=== PATIENT | female | born 2000 | race Hispanic/Latino ===

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

== ENCOUNTER 2021-05-10 15:59 | Outpatient (CLI) | payer OTHER ==
[2021-05-10] MEDS ORDERED: LACTATED RINGERS 500 ML IV ONE (16:30)
[2021-05-10 17:08] VITALS: BP 121/71
--- NOTE | 2021-05-10 18:15 | Ultrasound Report ---
ULTRASOUND BIOPHYSICAL PROFILE INDICATION: decreased movement. COMPARISON: None available. FINDINGS: BREATHING MOVEMENT = 2 GROSS BODY MOVEMENT = 2 TONE = 2 QUALITATIVE AMNIOTIC FLUID VOLUME = 2 TOTAL BIOPHYSICAL SCORE = 04/01 AMNIOTIC FLUID INDEX (cm) = 7.8 PRESENTATION: Cephalic. HEART RATE (beats per minute): 136 IMPRESSION: 1. biophysical profile = 04/01 Signer Name: Roberth Solano MD Signed: 05/10/2021 6:10 PM Workstation Name: [email or web address]
== END 2021-05-10 18:34 | disposition home or self-care (01) ==
LOC: TRG 15:59 → APU 16:00 → TRG 18:34
PROVIDERS: ATTEND Obstetrics & Gynecology
DX: O36.8130 Decreased fetal movements, third trimester, not applicable or unspecified (principal); Z3A.28 28 weeks gestation of pregnancy
CPT/HCPCS: 59025; 76815; 76819

== ENCOUNTER 2021-06-26 06:31 | Outpatient (CLI) | payer OTHER ==
[2021-06-26] MEDS ORDERED: LACTATED RINGERS 500 ML IV ONE (08:00)
[2021-06-26 08:12] VITALS: BP 122/74
== END 2021-06-26 08:09 | disposition home or self-care (01) ==
LOC: TRG 06:31 → APU 06:32 → TRG 08:09
PROVIDERS: ATTEND Student in an Organized Health Care Education/Training Program
DX: Z34.93 Encounter for supervision of normal pregnancy, unspecified, third trimester (principal); Z3A.36 36 weeks gestation of pregnancy
CPT/HCPCS: 59025; Q0177

== ENCOUNTER 2021-07-10 12:58 | Outpatient (CLI) | payer OTHER ==
[2021-07-10] MEDS ORDERED: LACTATED RINGERS 1,000 ML IV ONE (14:00)
[2021-07-10 14:51] LABS: Bilirubin,Urine NEG (Negative); Blood,Urine NEG (Negative); Color,Urine Yellow (Yellow); Hyaline Casts,Urine 12 /LPF; Mucus,Urine FEW /HPF; Urobilinogen,Urine < 2.0 mg/dL (<2.0)
[2021-07-10 14:52] LABS: Basophils % (Auto) 0.3 % (0.0-1.8); Eosinophils # (Auto) 0.1 K/mm3 (0.0-0.4); Eosinophils % (Auto) 1.1 % (0.0-4.3); Hematocrit 35.5 % (30.3-42.9); Hemoglobin 11.3 gm/dl (10.1-14.3); Lymphocytes # (Auto) 1.2 K/mm3 (1.2-5.4); Lymphocytes % (Auto) 10.1 % (13.4-35.0); Mean Corpuscular HGB Conc 32 % (30-34); Mean Corpuscular Volume 82 fl (79-97); Monocytes # (Auto) 1.2 K/mm3 (0.0-0.8); Monocytes % (Auto) 9.8 % (0.0-7.3); Platelet Count 182 K/mm3 (140-440); Red Blood Count 4.32 M/mm3 (3.65-5.03); Red Cell Distribution Width 14.1 % (13.2-15.2)
--- NOTE | 2021-07-10 15:45 | XRay Report ---
CHEST 1 VIEW 07/10/2021 3:14 PM INDICATION / CLINICAL INFORMATION: SOB. COMPARISON: None available. FINDINGS: SUPPORT DEVICES: None. HEART / MEDIASTINUM: No significant abnormality. LUNGS / PLEURA: No significant pulmonary abnormality. No significant pleural effusion. No pneumothora x. ADDITIONAL FINDINGS: No significant additional findings. IMPRESSION: 1. No acute abnormality of the chest. Signer Name: Chauncey East MD Signed: 07/10/2021 3:41 PM Workstation Name: [id number]
[2021-07-10] MEDS ORDERED: ALBUTEROL 2.5 MG/3 ML NEBU IH ONE (16:53)
--- NOTE | 2021-07-10 18:29 | Event Note ---
Date: 07/10/21 Patient presents complaining of SOB and contractions, O2 sat's normal, she gives an history of asthma which this feels like but has not used her albuterol neb and has not had an asthma attack in 5-6years. CXR normal, respiratory consulted for assessment and treatment. Complained of chest pain EKG revealed only sinus tachycardia. Will reassess to determine if she will be allowed home
[2021-07-10 19:02] LABS: Alanine Aminotransferase 7 units/L (7-56); Uric Acid 4.2 mg/dL (3.5-7.6)
--- NOTE | 2021-07-10 19:16 | Event Note ---
Date: 07/10/21 Pt reports feeling better and desires to go home. Pt states she was cleaning today and States she inhaled dust and cleaning supplies that aggravated her asthma. Pre-e labs reviewed. Plan for d/c home with reactive tracing.
[2021-07-10 20:16] VITALS: BP 125/64
--- NOTE | 2021-07-12 10:37 | Electrocardiograph Report ---
[facility] Test Date: 2021-07-10 Test Time: 17:31:11 Pat Name: JOSR MANCINI Department: Room: Gender: F Customer Services Coordinator: DARWIN : 2000 Requested By: MANFRED HERNANDEZ Order Number: [id number] Reading MD: Jacob Ansari Measurements Intervals [place] Rate: 123 P: 35 MI: 122 QRS: 7 QRSD: 83 T: 29 QT: 316 QTc: 452 Interpretive Statements Sinus tachycardia No previous ECG available for comparison Electronically Signed On 07-12-2021 10:36:41 EST by Jacob Ansari
== END 2021-07-10 20:30 | disposition home or self-care (01) ==
LOC: TRG 12:58 → APU 12:59 → TRG 20:30
PROVIDERS: ATTEND Obstetrics & Gynecology
DX: O62.9 Abnormality of forces of labor, unspecified (principal); R06.02 Shortness of breath; O99.513 Diseases of the respiratory system complicating pregnancy, third trimester; J45.909 Unspecified asthma, uncomplicated; Z3A.38 38 weeks gestation of pregnancy; Z87.891 Personal history of nicotine dependence
CPT/HCPCS: 36415; 71045; 81001; 82565; 83615; 84450; 84460; 84550; 85025; 93005; 94640; 96360; J7120; J3490

== ENCOUNTER 2022-01-19 15:28 | Emergency (ER) | payer OTHER ==
[2022-01-19 15:31] VITALS: BP 142/77
== END 2022-01-20 12:17 | disposition left against medical advice (07) ==
LOC: ED 15:28
DX: O21.9 Vomiting of pregnancy, unspecified (principal); Z53.21 Procedure and treatment not carried out due to patient leaving prior to being seen by health care provider; Z3A.14 14 weeks gestation of pregnancy

== ENCOUNTER 2022-05-11 09:00 | Outpatient (CLI) | payer OTHER ==
[2022-05-11 10:27] VITALS: BP 110/72
--- NOTE | 2022-05-11 12:26 | Ultrasound Report ---
ULTRASOUND ABDOMEN, LIMITED INDICATION / CLINICAL INFORMATION: evaluate for appendicitis. COMPARISON: None available. FINDINGS: Limited imaging of the right lower quadrant was provided. The appendix is not visualized or evaluated . FREE FLUID: None. ADDITIONAL FINDINGS: None. IMPRESSION: 1. Appendix not visualized or evaluated. Signer Name: Lisseth Miller MD Signed: 05/11/2022 12:22 PM Workstation Name: [id number]
--- NOTE | 2022-05-11 13:16 | Event Note ---
Date: 05/11/22 This is a 22-year-old female G2, P1, complains of worsening right abdominal pain over the last 24 hours. Positive nausea but no vomiting. She denies fever. Her last delivery was a vaginal delivery in June 2021. She also complains of fatigue. On exam slight tenderness in the right side of the abdomen. Pelvic exam revealed the cervix to be 0/0/-3. heart tones were category 1, no contractions noted. Ultrasound was performed to rule out appendicitis that was inconclusive. Recommend proceeding with CT scan however patient declines due to concerns for radiation. We will proceed with CBC observe for now. Consider allowing home if she remains stable with precautions, and without nausea and vomiting. Plan of care discussed with patient she voiced understanding and agrees with plan of care.
[2022-05-11 13:53] LABS: Basophils # (Auto) 0.1 K/mm3 (0.0-0.1); Basophils % (Auto) 0.6 % (0.0-1.8); Eosinophils # (Auto) 0.1 K/mm3 (0.0-0.4); Eosinophils % (Auto) 0.9 % (0.0-4.3); Hematocrit 34.8 % (30.3-42.9); Hemoglobin 11.8 gm/dl (10.1-14.3); Lymphocytes # (Auto) 1.7 K/mm3 (1.2-5.4); Lymphocytes % (Auto) 17.4 % (13.4-35.0); Mean Corpuscular HGB Conc 34 % (30-34); Mean Corpuscular Volume 84 fl (79-97); Monocytes # (Auto) 0.9 K/mm3 (0.0-0.8); Monocytes % (Auto) 9.2 % (0.0-7.3); Platelet Count 190 K/mm3 (140-440); Red Blood Count 4.14 M/mm3 (3.65-5.03); Red Cell Distribution Width 15.2 % (13.2-15.2)
[2022-05-11 14:31] LABS: Color,Urine Yellow (Yellow)
[2022-05-11 14:35] LABS: Bacteria,Urine 1+ /HPF (Negative); Mucus,Urine 3+ /HPF
[2022-05-11] MEDS ORDERED: LACTATED RINGERS 500 ML IV ONE (14:51)
[2022-05-11] MEDS ORDERED: ACETAMINOPHEN 325 MG TAB PO PRN (15:02)
== END 2022-05-11 15:58 | disposition home or self-care (01) ==
LOC: TRG 09:00 → APU 09:02 → TRG 15:58
PROVIDERS: ATTEND Obstetrics & Gynecology
DX: O26.893 Other specified pregnancy related conditions, third trimester (principal); R10.9 Unspecified abdominal pain; Z3A.30 30 weeks gestation of pregnancy
CPT/HCPCS: 36415; 59025; 76705; 81001; 85025